=== PATIENT | male | born 1940 | race Caucasian/White ===

== ENCOUNTER 2022-11-24 16:15 | Inpatient (IN) | payer MEDICARE ==
[~2022-11-24] VITALS: Ht 170.2 cm; Wt 70.0 kg
[2022-11-24] MEDS ORDERED: MECLIZINE HCL 25 MG TABLET PO ONE (17:00)
[2022-11-24 17:16] LABS: HEMATOCRIT 41.9 % (41-53); HEMOGLOBIN 13.7 g/dL (13.5-17.5); MEAN CORPUSCULAR HGB CONC 32.8 G/dL (31.0-37.0); MEAN CORPUSCULAR VOLUME 85 fL (80-100); PLATELET COUNT (AUTO) 251 K/uL (150-450)
[2022-11-24 17:26] LABS: ANION GAP 8 mmol/L (8-16); CALCIUM, TOTAL 9.5 mg/dL (8.8-10.5); CARBON DIOXIDE 27 mmol/L (22-29); CHLORIDE 103 mmol/L (98-107); GLOMERULAR FILTR. RATE CALC > 60 mL/min (>60); GLUCOSE,RANDOM 125 mg/dL (70-110); POTASSIUM 4.1 mmol/L (3.5-5.1); SODIUM SERUM 138 mmol/L (136-145)
[2022-11-24 17:28] LABS: ALBUMIN 4.1 g/dL (3.4-5.0)
[2022-11-24 17:34] LABS: BAND NEUTROPHILS % (MANUAL) 4 % (0-5); LYMPHOCYTES % (MANUAL) 70 % (22-44); SEGMENTED NEUTROPHILS % 26 % (40-70)
[2022-11-24 17:41] LABS: ALANINE AMINOTRANSFERASE 22 U/L (12-78); ALKALINE PHOSPHATASE 50 U/L (46-116); ASPARTATE AMINOTRANSFERASE 18 U/L (15-37); BILIRUBIN,TOTAL 0.5 mg/dL (0.1-1.0); TOTAL PROTEIN, SERUM 7.7 g/dL (6.4-8.2)
[2022-11-24] MEDS ORDERED: ACETAMINOPHEN 325 MG TABLET PO PRN ×3 (18:45→23:15)
[2022-11-24] MEDS ORDERED: ONDANSETRON HCL 4 MG/2 ML VIAL IVP PRN ×3 (18:45→23:15)
[2022-11-24] MEDS ORDERED: HYDROCODONE/ACETAMINOPHEN 5-325 MG TABLET PO PRN ×2 (22:45→23:15)
[2022-11-24] MEDS ORDERED: IPRATROPIUM BROMIDE 0.5 MG/2.5 ML NEB SOLUTION NEB PRN ×2 (22:45→23:15)
[2022-11-24] MEDS ORDERED: ALBUTEROL SULFATE 2.5 MG/0.5 ML NEB SOLUTION NEB PRN ×2 (22:45→23:15)
[2022-11-24] MEDS ORDERED: MORPHINE SULFATE 2 MG/ML SYRINGE IVP PRN ×2 (22:45→23:15)
[2022-11-24] MEDS ORDERED: BISACODYL 10 MG RECTAL RECTAL SUPPOSITORY PR PRN ×2 (22:45→23:15)
[2022-11-24] MEDS ORDERED: ZOLPIDEM TARTRATE 5 MG TABLET PO PRN ×2 (22:45→23:15)
[2022-11-24] MEDS ORDERED: MAGNESIUM HYDROXIDE SUSPENSION 30 ML UDCUP PO PRN ×2 (22:45→23:15)
[2022-11-24] MEDS ORDERED: HydrALAZINE HCL 20 MG/ML VIAL IVP PRN (23:15)
[2022-11-24 23:54] VITALS: BP 156/89; PULSE 68; RESP 16; TEMP 98.1
[2022-11-25] VITALS (7 sets, daily range): BP systolic 129–163; BP diastolic 55–88; PULSE 60–68; RESP 16–20; TEMP 97.6–98.4
[2022-11-25] MEDS ORDERED: HEPARIN SODIUM,PORCINE 5,000 UNITS/ML VIAL SQ SCH
[2022-11-25] MEDS: HEPARIN SODIUM,PORCINE 5,000 UNITS/ML VIAL SQ SCH ×4 (00:34→23:55)
[2022-11-25 06:29] LABS: CHOL/HDL RATIO 4.9 (4.2-7.3)
[2022-11-25] MEDS: DOCUSATE SODIUM 100 MG CAPSULE PO SCH ×2 (08:30→20:09)
[2022-11-25] MEDS: PANTOPRAZOLE SODIUM 40 MG/VIAL IVP SCH (08:31)
[2022-11-25] MEDS: ASPIRIN 81 MG CHEWABLE TABLET PO SCH (08:31)
[2022-11-25] MEDS ORDERED: PANTOPRAZOLE SODIUM 40 MG/VIAL IVP SCH (09:00)
[2022-11-25] MEDS ORDERED: DOCUSATE SODIUM 100 MG CAPSULE PO SCH (09:00)
[2022-11-25] MEDS ORDERED: MECLIZINE HCL 25 MG TABLET PO PRN (10:45)
[2022-11-25] MEDS: CLOPIDOGREL BISULFATE 75 MG TABLET PO SCH (10:58)
[2022-11-25] MEDS ORDERED: CLOP75TA60 PO (12:13)
[2022-11-25] MEDS ORDERED: MECL-160 PO (12:13)
[2022-11-25] MEDS ORDERED: ASPI81 PO (12:13)
[2022-11-25] MEDS ORDERED: ATOR10TA PO (12:14)
[2022-11-25] MEDS ORDERED: ATORVASTATIN CALCIUM 10 MG TABLET PO SCH (21:00)
[2022-11-26 04:06] VITALS: BP 122/68; PULSE 61; RESP 18; TEMP 98.1
[2022-11-26 07:46] VITALS: BP 149/79; PULSE 62; RESP 18; TEMP 98
[2022-11-26] MEDS: HEPARIN SODIUM,PORCINE 5,000 UNITS/ML VIAL SQ SCH (08:00)
[2022-11-26] MEDS: PANTOPRAZOLE SODIUM 40 MG/VIAL IVP SCH (08:19)
[2022-11-26] MEDS: DOCUSATE SODIUM 100 MG CAPSULE PO SCH (09:39)
[2022-11-26] MEDS: CLOPIDOGREL BISULFATE 75 MG TABLET PO SCH (09:39)
[2022-11-26] MEDS: ASPIRIN 81 MG CHEWABLE TABLET PO SCH (09:39)
[2022-11-26 10:31] VITALS: BP 164/92; PULSE 68; RESP 18; TEMP 98
== END 2022-11-26 11:20 | disposition home or self-care (01) | DRG 65 ==
LOC: EMS 16:16 → 5S 20:18
PROVIDERS: ADMIT Hospitalist; ATTEND Hospitalist
DX: I63.541 Cerebral infarction due to unspecified occlusion or stenosis of right cerebellar artery (principal); C95.90 Leukemia, unspecified not having achieved remission; I10 Essential (primary) hypertension
CPT/HCPCS: 70450; 70551; 71045; 80053; 80061; 85025; 92610; 93005; 93306; 93880; 97162; 97165; 97535; 99285; C9113; J1644; 36415-L1; 36415-TC